=== PATIENT | male | born 1985 | race Caucasian/White ===

== ENCOUNTER 2019-04-14 10:47 | Emergency (ER) | payer MEDICARE, MEDICAID ==
[~2019-04-14] VITALS: Ht 190.5 cm; Wt 55.7 kg
[~2019-04-14 10:47] MED LIST: CIPR7.5D RIGHT EAR; CYCL-1 PO
[2019-04-14] MEDS ORDERED: IBUP-1984 PO (11:35)
[2019-04-14 12:38] VITALS: BP 128/65
== END 2019-04-14 12:05 | disposition home or self-care (01) ==
LOC: ER 10:48
DX: M79.641 Pain in right hand (principal); G89.29 Other chronic pain; Z86.69 Personal history of other diseases of the nervous system and sense organs; Z88.8 Allergy status to other drugs, medicaments and biological substances; Z79.899 Other long term (current) drug therapy
CPT/HCPCS: 29125; 73130; 99284

== ENCOUNTER 2020-05-01 08:24 | Outpatient (CLI) | payer MEDICARE, MEDICAID | END 2020-05-01 23:59 | disposition home or self-care (01) | LOC: RAD 08:24 | PROVIDERS: ATTEND Psychiatry & Neurology Neurology | DX: G40.909 Epilepsy, unspecified, not intractable, without status epilepticus (principal) | CPT/HCPCS: 95816 ==

== ENCOUNTER 2020-05-22 10:57 | Outpatient (CLI) | payer MEDICARE, MEDICAID ==
[2020-05-22] MEDS ORDERED: iohexol 300mg/ml 100ml inj. ONE (11:05)
== END 2020-05-22 23:59 | disposition home or self-care (01) ==
LOC: 64 CT 10:57
PROVIDERS: ATTEND Psychiatry & Neurology Neurology
DX: G40.909 Epilepsy, unspecified, not intractable, without status epilepticus (principal)
CPT/HCPCS: 70450; Q9967

== ENCOUNTER 2021-05-02 10:38 | Emergency (ER) | payer MEDICARE, MEDICAID ==
[~2021-05-02] VITALS: Ht 193 cm; Wt 69.0 kg
[2021-05-02 11:09] VITALS: BP 148/108
[2021-05-02] MEDS ORDERED: ALBU8.5H17 IH (11:18)
[2021-05-02] MEDS ORDERED: BENZ-16 PO (11:18)
== END 2021-05-02 11:54 | disposition home or self-care (01) ==
LOC: ER 10:38
DX: R05 Cough (principal); R06.02 Shortness of breath; G89.29 Other chronic pain; G40.909 Epilepsy, unspecified, not intractable, without status epilepticus; Z88.8 Allergy status to other drugs, medicaments and biological substances; Z79.2 Long term (current) use of antibiotics
CPT/HCPCS: 99283

== ENCOUNTER 2021-08-26 18:19 | Emergency (ER) | payer MEDICARE, MEDICAID ==
[~2021-08-26] VITALS: Ht 193 cm; Wt 68.2 kg
[~2021-08-26 18:19] MED LIST changes: +ALBU8.5H17 IH
[2021-08-26] MEDS ORDERED: metoclopramide 5 mg/ml inj IM ONE (20:35)
[2021-08-26] MEDS ORDERED: diphenhydrAMINE 50 mg/ml inj IM ONE (20:35)
[2021-08-26 21:49] VITALS: BP 132/74
== END 2021-08-26 21:52 | disposition home or self-care (01) ==
LOC: ER 18:20
DX: G43.909 Migraine, unspecified, not intractable, without status migrainosus (principal); H93.13 Tinnitus, bilateral; R56.9 Unspecified convulsions; G89.29 Other chronic pain; Z86.69 Personal history of other diseases of the nervous system and sense organs; Z98.890 Other specified postprocedural states; Z88.8 Allergy status to other drugs, medicaments and biological substances; Z79.2 Long term (current) use of antibiotics
CPT/HCPCS: 70450; 96372; 99284; J1200; J2765

== ENCOUNTER 2023-12-18 12:02 | Emergency (ER) | payer BC, MEDICAID ==
[~2023-12-18] VITALS: Ht 175.3 cm; Wt 68.2 kg
[2023-12-18 12:07] VITALS: BP 126/80; PULSE 76; RESP 16; TEMP 98; O2SAT 100
[2023-12-18] MEDS ORDERED: NAPR-56 PO (12:53)
== END 2023-12-18 13:13 | disposition home or self-care (01) ==
LOC: ER 12:02
DX: S43.401A Unspecified sprain of right shoulder joint, initial encounter (principal); G89.29 Other chronic pain; M54.9 Dorsalgia, unspecified; Z88.8 Allergy status to other drugs, medicaments and biological substances; X58.XXXA Exposure to other specified factors, initial encounter; Y93.67 Activity, basketball; Y92.89 Other specified places as the place of occurrence of the external cause; Y99.8 Other external cause status
CPT/HCPCS: 73030; 99283

== ENCOUNTER 2024-11-18 13:11 | Emergency (ER) | payer BC, MEDICAID ==
[~2024-11-18] VITALS: Ht 193 cm; Wt 75.0 kg
[2024-11-18 13:11] VITALS: BP 117/80; PULSE 83; O2SAT 100
[2024-11-18 14:38] VITALS: RESP 16
[2024-11-18] MEDS: ketorolac trometh 30MG/ML vial 30 MG/ML VIAL IM ONE (14:38)
[2024-11-18] MEDS: cyclobenzaprine 10mg tablet PO ONE (14:38)
[2024-11-18] MEDS: dexamethasone sod phosphate 10mg/ml inj IM STA (14:38)
[2024-11-18] MEDS ORDERED: LIDO700A32 TOP (15:01)
[2024-11-18 15:35] VITALS: TEMP 98.2
[2024-11-19] MEDS ORDERED: LIDOcaine 5% patch TP SCH (08:00)
== END 2024-11-18 15:37 | disposition home or self-care (01) ==
LOC: ER 13:11
DX: S33.5XXA Sprain of ligaments of lumbar spine, initial encounter (principal); M54.40 Lumbago with sciatica, unspecified side; G89.29 Other chronic pain; M54.9 Dorsalgia, unspecified; Z88.8 Allergy status to other drugs, medicaments and biological substances; X58.XXXA Exposure to other specified factors, initial encounter; Y93.89 Activity, other specified; Y92.89 Other specified places as the place of occurrence of the external cause; Y99.8 Other external cause status
CPT/HCPCS: 72100; 96372; 99284; J1100; J1885

== ENCOUNTER 2025-01-09 11:41 | Emergency (ER) | payer BC, MEDICAID ==
[~2025-01-09] VITALS: Ht 193 cm; Wt 65.5 kg
[~2025-01-09 11:41] MED LIST changes: +LIDO700A32 TOP
--- NOTE | 2025-01-09 13:06 | Physician Documentation ---
History of Present Illness ~ Chief Complaint: Back Pain Stated Complaint: LOWER BACK PAIN Time Seen by MD: 12:22 Primary Medical Doctor: [facility] Male who presents to the ED for a complaint of a previous worker's comp injury which he states has developed increased lower back pain. This is a he takes ibuprofen cyclobenzaprine and gabapentin and these drugs are not helping remain ing longer. requestiung a MRI CT scan and various other imaging modalities.Denies acute injury or change in circumstance. 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 Physical Exam Physical Exam Vital Signs: Temperature: 97.6, Source: Temporal, Heart Rate: 94, Respiratory Rate: 18, BP: 144/89, Pulse Oximetry: 99, Weight: 65.450 Physical Exam General: Alert, no apparent distress. . back: tender to palpation in lumbar area Neurologic: Oriented x4. Psychiatric: Normal mood and affect. Skin: Normal color, warm and dry. No edema, no ecchymosis. Progress Results/Orders Results/Orders Completed Orders - PARKER ALCANTAR NP Ketorolac Trometh 30mg/Ml Vial (Toradol (01/09/25 13:00) Lidocaine 5% Patch (Lidoderm 5% Patch) (01/09/25 13:00) Oxycodone/Acetaminophen Tablet (Percocet (01/09/25 13:00) Medications Received in ER Medications (Trade) Dose Ordered Sig/Zahra Route PRN Reason Start Time Stop Time Status Last Admin Dose Admin (Toradol inj. 30mg/ml) 30 mg ONCE ONCE IM 01/09/25 13:00 01/09/25 13:01 DC 01/09/25 13:08 30 MG (Lidoderm 5% Patch) 1 patch DAILY TP 01/09/25 13:00 01/09/25 13:46 DC 01/09/25 13:07 1 PATCH (Percocet 10-325 mg tab) 1 tab ONCE ONCE PO 01/09/25 13:00 01/09/25 13:01 DC 01/09/25 13:08 1 TAB Vital Signs 01/09/25 01/09/25 01/09/25 01/09/25 11:57 13:08 13:08 13:43 Temp 97.6 97.6 Pulse 94 88 Resp 18 15 16 14 B/P (MAP) 144/89 136/90 Pulse Ox 99 99 Medical Decision Making Findings Acute injury I do not see any reason to pursue CT scan MRI or any other modalities of M imaging. The patient this that he can seek further evaluation from his worker's comp provider. However he appeared displeased with this information. gave pain medication in the ED and discharged for outpatient evaluation Differential Dx:Considerations: Include: AAA, Aortic dissection, Appendicitis, Bowel obstruction, Cholelithiasis, Cholangitis, DJD, Fracture, Hepatitis, HNP, Musculoskeletal pain, Pancreatitis, Pyelonephritis, Renal infarction, Strain, Urinary obstruction, Urolithiasis, Urinary tract infection, Other Departure Disposition: 01 HOME / SELF CARE / HOMELESS Impression: Primary Impression: Chronic back pain Condition: Stable Discharge Instructions: Chronic Back Pain Additional Instructions: Follow up with her worker's comp provider for further evaluation of your pain. Physical therapy and your pain management clinic should be your friends in order to recover from your injury Referrals: NO PRIMARY CARE PROVIDER (PCP) Education Educated: Patient Educated regarding: diagnosis Signature Scribe Signature: f Attestation: The note accurately reflects work and decisions made by me.Parker Barragan NP 01/09/25 17:58 PARKER ALCANTAR NP January 09, 2025 13:06
[2025-01-09] MEDS: LIDOcaine 5% patch TP SCH (13:07)
[2025-01-09] MEDS: oxyCODONE/APAP 10/325mg tablet PO ONE (13:08)
[2025-01-09] MEDS: ketorolac trometh 30MG/ML vial 30 MG/ML VIAL IM ONE (13:08)
[2025-01-09 13:43] VITALS: BP 136/90; PULSE 88; RESP 14; TEMP 97.6; O2SAT 99
== END 2025-01-09 13:46 | disposition home or self-care (01) ==
LOC: ER 11:42
DX: G89.29 Other chronic pain (principal); M54.50 Low back pain, unspecified; Z88.8 Allergy status to other drugs, medicaments and biological substances
CPT/HCPCS: 96372; 99284; J1885

== ENCOUNTER 2025-06-27 20:57 | Emergency (ER) | payer BC, MEDICAID ==
[~2025-06-27] VITALS: Ht 193 cm; Wt 75.0 kg
[~2025-06-27 20:57] MED LIST changes: +LIDO-52 TOP; -LIDO700A32 TOP
[2025-06-27 21:32] VITALS: BP 140/85; PULSE 103; O2SAT 100
--- NOTE | 2025-06-27 21:56 | RADIOLOGY REPORT ---
CLINICAL INDICATION: Shoulder Pain TECHNIQUE: 3 views DI SHOULDER, COMPLETE (MIN 2 VWS) Comparison: DI SHOULDER, COMPLETE (MIN 2 VWS) on DOS: 12/18/23 FINDINGS: Suboptimal positioning. No evidence of acute fracture or dislocation. No significant degenerative change. Unremarkable soft tissues. 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 IMPRESSION: 1. No acute osseous abnormality of the right shoulder.
--- NOTE | 2025-06-27 23:19 | Physician Documentation ---
History of Present Illness ~ Chief Complaint: Shoulder pain Stated Complaint: SHOULDER PAIN Time Seen by MD: 23:20 Primary Medical Doctor: [facility] HPI This is a 40-year-old male who presents with two days of right shoulder pain, patient reports no known injury to the shoulder. Patient reports no other acute symptoms or concerns. 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 Physical Exam Vital Signs: Temperature: 97.6, Source: Temporal, Heart Rate: 103, Respiratory Rate: 15, BP: 140/85, Pulse Oximetry: 100, Weight: 75.000 Physical Exam VITALS: Reviewed and as above. GENERAL: Alert, nontoxic appearing, no apparent distress. RESPIRATORY: No increased work of breathing, no respiratory distress, speaking in full clear sentences CV: Brisk capillary refill to right fingers MUSCULOSKELETAL: Right shoulder tender to palpation, pain elicited with active and passive ROM to right shoulder, no obvious deformity NEURO: Sensation intact to right extremity Progress Results/Orders Results/Orders Orders - CLEMENTE LOO Ortho Orders (06/27/25 ) Completed Orders - CLEMENTE LOO Ketorolac Trometh 15mg/Ml Vial (Toradol (06/27/25 23:20) Medications Received in ER Medications (Trade) Dose Ordered Sig/Zahra Route PRN Reason Start Time Stop Time Status Last Admin Dose Admin (Toradol injection) 15 mg ONCE ONCE IM 06/27/25 23:20 06/27/25 23:21 DC 06/27/25 23:30 15 MG Vital Signs 1006/27/25 06/27/25 21:32 23:23 23:30 Temp 97.6 97.6 Pulse 103 Resp 15 18 B/P (MAP) 140/85 Pulse Ox 100 EKG/XRAY/CT/US/VASC/MRI Bone/Soft Tissue X-Ray (Ext.) : Additional Comment Exam: SHOULDER, COMPLETE (MIN 2 VWS) CLINICAL INDICATION: Shoulder Pain TECHNIQUE: 3 views DI SHOULDER, COMPLETE (MIN 2 VWS) Comparison: DI SHOULDER, COMPLETE (MIN 2 VWS) on DOS: 12/18/23 FINDINGS: Suboptimal positioning. No evidence of acute fracture or dislocation. No significant degenerative change. Unremarkable soft tissues. 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 IMPRESSION: 1. No acute osseous abnormality of the right shoulder. Electronically Signed by:MARIANA LUKE MD Date & Time: 06/27/252152 Dictated by: MARIANA LUKE MD Dictation date and time: 06/27/252140 I have reviewed and agree with the radiology report. I have reviewed and interpreted the imaging as: No fracture or dislocation Medical Decision Making Additional information obtaine: N/A Findings This 40-year-old male presented with right shoulder pain for the past two days, patient reported no known injury to the area though reports pain came on after working around his house. Physical exam demonstrated pain to the right shoulder with pain limiting ROM, the limb was neurovascularly intact which was reassuring. Imaging did not demonstrate evidence of fracture or dislocation. I suspect soft tissue injury the shoulder with a high possibility of overuse injury due to history of onset. Patient placed in sling for comfort and medicated for pain. Patient offered prescription for high-dose ibuprofen for pain but declined. Patient is otherwise well-appearing with remainder of physical exam benign. Patient is appropriate for outpatient follow up. Patient discharged with careful return to care precautions, follow up instructions, and home care instructions. Differential Dx:Considerations: Include: AC separation, Adhesive capsulitis, arthritis, Bicipital tendonitis, Calcific tendonitis, Cervical disc disease, Contusion, Dislocation, Fracture: Humerus, Fracture: Scapula, Fracture: Clavicle, Gallbladder Disease, Hematoma, Impingement syndrome, Myocardial infarction, Neurovascular Injury, Rotator cuff injury, SC dislocation, Sprain Departure Time of Disposition: :23 Disposition: 01 HOME / SELF CARE / HOMELESS Impression: Primary Impression: Shoulder joint pain Qualified Codes: M25.511 - Pain in right shoulder Condition: Improved Discharge Instructions: Shoulder Pain Additional Instructions: Please use the provided sling for comfort. You may use ibuprofen and or Tylenol as needed for pain. Please follow up with your primary care provider in the next few days. Please return to the emergency department for any new or worsening concerning symptoms. Referrals: NO PRIMARY CARE PROVIDER (PCP) Education Educated: Patient Educated regarding: diagnosis, treatment, prognosis, need for follow up Signature Scribe Signature: No scribe Attestation: The note accurately reflects work and decisions made by me.KAYLI Hogan 06/28/25 00:59 Parts of this note were created using [employer] voice recognition software program. While efforts were made to correct any mistakes made by this voice recognition software program, nonsensical phrases may remain in this note. In addition, there may be errors and syntax, grammar, content and spelling. CLEMENTE LOO Jun 27, 2025 23:19
[2025-06-27 23:23] VITALS: TEMP 97.6
[2025-06-27 23:30] VITALS: RESP 18
[2025-06-27] MEDS: ketorolac trometh 15mg/ml vial 15 MG/ML ML IM ONE (23:30)
== END 2025-06-27 23:24 | disposition home or self-care (01) ==
LOC: ER 20:57
DX: M25.511 Pain in right shoulder (principal); G89.29 Other chronic pain; Z88.8 Allergy status to other drugs, medicaments and biological substances; Z79.899 Other long term (current) drug therapy
CPT/HCPCS: 73030; 96372; 99283; J1885